=== PATIENT | male | born 1975 | race African-American/Black ===

== ENCOUNTER 2018-06-28 18:41 | Emergency (ER) | payer OTHER ==
[2018-06-28] MEDS ORDERED: DIAZEPAM 5 MG TABLET PO ONE (22:46)
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
[2018-06-28 23:37] VITALS: BP 131/80
== END 2018-06-28 23:37 | disposition home or self-care (01) ==
LOC: ER 18:41
DX: M54.9 Dorsalgia, unspecified (principal); V42.5XXA Car driver injured in collision with two- or three-wheeled motor vehicle in traffic accident, initial encounter
CPT/HCPCS: 99283